=== PATIENT | female | born 1930 | race Caucasian/White ===

== ENCOUNTER 2017-06-28 15:37 | Outpatient (CLI) | payer MEDICARE, OTHER ==
[2017-06-28 17:31] LABS: #Basophils 0.1 thou/uL (0.0-0.2); #Eosinphils 0.2 thou/uL (0.0-0.7); #Monocytes 0.6 thou/uL (0.11-0.59); #Neutrophils 3.5 thou/uL (1.40-6.50); %Basophils 1.2 % (0.0-1.0); %Eosinophils 3.4 % (0.0-10.0); %Lymphocytes 31.5 % (21.0-51.0); %Monocytes 9.2 % (0.0-10.0); Hematocrit 41.3 % (36.0-47.0); Mean Platelet Volume 7.5 fL (7.4-10.4); Red Blood Cell (RBC) Count 4.11 mill/uL (4.20-5.40); White Blood Cell (WBC) Count 6.4 thou/uL (4.8-10.8)
[2017-06-28 17:51] LABS: Anion Gap 8 mmol/L (10-20); BUN (Urea Nitrogen) 25 mg/dL (9.8-20.1); Calc. Creatinine Clearance 0 mL/min (70-130); Calcium 9.5 mg/dL (7.8-10.44); Carbon Dioxide 36 mmol/L (23-31); Chloride 104 mmol/L (98-107); Estimated GFR-MDRD 41
--- NOTE | 2017-06-29 21:06 | EKG ---
Test Reason : Blood Pressure : / mmHG Vent. Rate : 056 BPM Atrial Rate : 056 BPM P-R Int : 152 ms QRS Dur : 090 ms QT Int : 424 ms P-R-T Axes : 060 068 035 degrees QTc Int : 409 ms Sinus bradycardia Otherwise normal ECG When compared with ECG of 20-AUG-2016 14:04, No significant change was found Confirmed by SIGRID MCCRACKEN, SAditi ([id number]) on 06/29/2017 9:06:17 PM Referred By: FRIDA Confirmed By:DR. Celestino MATTA MD
== END 2017-06-28 15:38 | disposition home or self-care (01) ==
LOC: LABBT 15:37
PROVIDERS: ATTEND Orthopaedic Surgery
DX: Z01.818 Encounter for other preprocedural examination (principal); M65.331 Trigger finger, right middle finger; M65.341 Trigger finger, right ring finger
CPT/HCPCS: 80048; 85025; 93005; 93010

== ENCOUNTER 2017-07-02 06:19 | Day surgery (SDC) | payer MEDICARE, OTHER ==
[2017-07-02] MEDS ORDERED: CEFAZOLIN/Water 2 GM/20 ML SYRINGE ONE (07:19)
[2017-07-02] MEDS ORDERED: Lidocaine 1% w/Epinephrine 1:200K 30 ML VIAL ONE (09:11)
--- NOTE | 2017-07-02 11:07 | OP ---
PREOPERATIVE DIAGNOSIS: Trigger finger, right 3 and 4. POSTOPERATIVE DIAGNOSIS: Trigger finger, right 3 and 4. SURGEON: Philip Blas M.D. ANESTHESIA: General. BLOOD LOSS: Minimal. SPECIMEN: None. DRAINS: None. COMPLICATIONS: None. TITLE of PROCEDURE: Right third trigger finger release, right fourth trigger finger release. DESCRIPTION OF PROCEDURE: After prepping and draping, the arm was exsanguinated, tourniquet was infl ated to 250 mmHg. I made a transverse incision over the A1 leigh of the 3rd and 4th digits. Dissec tion carried down to the A1 leigh, which was released under direct visualization. Fingers were flex ed and extended, there was no catching or popping. Tourniquet was released. Irrigation was performe d. Lidocaine was injected into the surgical sites. The wounds were closed with 4-0 nylon and steril e dressings applied. There were no complications.
== END 2017-07-02 12:45 | disposition home or self-care (01) ==
LOC: SDC 06:19
PROVIDERS: ATTEND Orthopaedic Surgery
PROC: 0LN70ZZ Release Right Hand Tendon, Open Approach (ICD-10-PCS; principal; 2017-07-02)
PROC: 0LN70ZZ Release Right Hand Tendon, Open Approach (ICD-10-PCS; 2017-07-02)
DX: M65.341 Trigger finger, right ring finger (principal); M65.331 Trigger finger, right middle finger; Z87.891 Personal history of nicotine dependence; Z88.5 Allergy status to narcotic agent; Z88.2 Allergy status to sulfonamides; Z91.041 Radiographic dye allergy status